=== PATIENT | female | born 1950 | race Caucasian/White ===

== ENCOUNTER → 2018-03-03 | Outpatient (CLI) | payer OTHER, MEDICAID ==
[2016-08-01 20:21] VITALS: BP 137/74
--- NOTE | 2018-03-03 10:55 | US ---
HISTORY: Right upper quadrant pain Study: Right upper quadrant abdominal ultrasound Comparison: None Technique: Multiple images of the right upper quadrant were obtained. Findings: The liver measures 14.2 cm. Increased echogenicity throughout the visualized liver suggests fatty inf iltration. Correlate clinically as other causes of hepatic disease may produce a similar appearance. The right kidney measures 7.1 x 3.7 x 3.7 cm. No sonographic evidence of hydronephrosis is identified . Gallbladder folds are noted. Small non shadowing foci seen along the gallbladder wall may reflect g allbladder folds as well however polyps may produce a similar appearance. Gallbladder wall thickness is within normal limits measuring 2.1. The common bile duct is within normal limits in caliber measur ing 3.2. The pancreas was incompletely visualized. The exam is somewhat limited due to overlying [place] gas. IMPRESSION: Sonographic findings of hepatic steatosis. Other findings as noted above. Reported By:
== END ==
LOC: RAD 08:59
PROVIDERS: ATTEND Nurse Practitioner Family
DX: R10.11 Right upper quadrant pain (principal); R11.0 Nausea
CPT/HCPCS: 76705

== ENCOUNTER → 2018-03-11 | Outpatient (CLI) | payer OTHER, MEDICAID ==
[2016-08-01 20:21] VITALS: BP 137/74
--- NOTE | 2018-03-11 10:57 | NM ---
HISTORY: Abdominal pain Study: Hepatobiliary scan with ejection fraction Comparison: None Technique: Patient received intravenous injection of 5.5 mCi technetium 99 M mebrofenin. Sequential i mages of the right upper quadrant were obtained. The patient received a fatty meal and the abdomen wa s imaged once again. A time activity curve was plotted. Findings: There is good visualization of the hepatic parenchyma. No photopenic defects are identified. The bili nacho ducts and gallbladder visualized. There is free passage of tracer into the duodenum. Gallbladder ejection fraction was 7% which is low (normal greater than 35% ) IMPRESSION: Gallbladder ejection fraction 7% which is low (normal greater than 35%) Reported By:
== END ==
LOC: RAD 08:31
PROVIDERS: ATTEND Nurse Practitioner Family
DX: R10.11 Right upper quadrant pain (principal)
CPT/HCPCS: 78227; A9537

== ENCOUNTER → 2018-03-15 | Outpatient (CLI) | payer OTHER, MEDICAID ==
[2016-08-01 20:21] VITALS: BP 137/74
[2018-03-15 12:29] LABS: BILIRUBIN,URINE NEGATIVE (NEGATIVE); BLOOD/HEMOGLOBIN,URINE 1+ (NEGATIVE); GLUCOSE, URINE NEGATIVE (NEGATIVE); KETONES,URINE NEGATIVE (NEGATIVE); LEUKOCYTE ESTERASE ,URINE NEGATIVE (NEGATIVE); NITRITES,URINE NEGATIVE (NEGATIVE); PROTEIN,URINE NEGATIVE (NEGATIVE); UROBILINOGEN,URINE NORMAL (NORMAL)
[2018-03-15 12:39] LABS: APPEARANCE,URINE CLEAR (CLEAR); COLOR,URINE YELLOW (YELLOW); RBC,URINE 0-2 /HPF (NONE SEEN)
[2018-03-15 12:40] LABS: BACTERIA,URINE TRACE /HPF (NEGATIVE); SQUAMOUS EPITHELIAL CELL,UR FEW /HPF (NEGATIVE)
--- NOTE | 2018-03-15 12:46 | RAD ---
HISTORY: Preop. Study: PA and lateral chest. Comparison: Chest x-ray dated February 03, 2013. Findings: Interval removal of a right chest Port-A-Cath. The cardiac silhouette is unremarkable. Chronic emphys ematous changes. No obvious focal consolidation, pleural effusion, or pneumothorax. The bony thorax is unremarkable. Surgical clips are seen overlying the bilateral chest and axilla. IMPRESSION: No acute cardiopulmonary disease. Reported By:
== END ==
LOC: LAB 12:13
PROVIDERS: ATTEND Surgery
DX: Z01.818 Encounter for other preprocedural examination (principal); Z01.810 Encounter for preprocedural cardiovascular examination; Z01.811 Encounter for preprocedural respiratory examination; Z79.899 Other long term (current) drug therapy; K82.8 Other specified diseases of gallbladder; R97.0 Elevated carcinoembryonic antigen [CEA]
CPT/HCPCS: 36415; 71046; 81001; 82378; 93005; 93010

== ENCOUNTER 2018-03-17 07:14 | Day surgery (SDC) | payer OTHER, MEDICAID ==
[~2018-03-17 07:14] MED LIST: ANCEF 1 GM IV PREMIX* 1 GM/50 ML BAG IV ONE; LR 1000 ML IV 1,000 ML IV ONE
[2018-03-17] MEDS ORDERED: DUONEB 0.5 MG/3 MG NEB ONE (08:00)
[2018-03-17] MEDS ORDERED: FENTANYL INJ 250 mcg ONE (08:20)
[2018-03-17] MEDS ORDERED: NS IRRIGATION 3000 ML 3,000 ML IR ONE (08:50)
[2018-03-17] MEDS ORDERED: DILAUDID INJ ONE (09:00)
[2018-03-17] MEDS ORDERED: DILAUDID INJ IVP PRN (09:47)
[2018-03-17] MEDS ORDERED: BENADRYL INJ 50 MG VIAL IVP PRN (09:47)
[2018-03-17] MEDS ORDERED: ZOFRAN INJ 4 MG VIAL IVP PRN (09:47)
[2018-03-17] MEDS ORDERED: PHENERGAN INJ 25 MG IVP PRN (09:47)
[2018-03-17] MEDS ORDERED: REGLAN INJ 10 MG VIAL IVP PRN (09:47)
[2018-03-17 11:21] VITALS: BP 134/71
[2018-03-17] MEDS ORDERED: NORCURON INJ 10 MG VIAL ONE (15:49)
[2018-03-17] MEDS ORDERED: XYLOCAINE 1 % (PLAIN) ONE (15:49)
[2018-03-17] MEDS ORDERED: ZOFRAN INJ 4 MG VIAL ONE (15:49)
[2018-03-17] MEDS ORDERED: NEOSTIGMINE INJ ONE (15:49)
[2018-03-17] MEDS ORDERED: ROBINUL ONE (15:49)
[2018-03-17] MEDS ORDERED: SUPRANE IN ONE (15:49)
[2018-03-17] MEDS ORDERED: VERSED ONE (15:49)
[2018-03-17] MEDS ORDERED: LTA KIT LIDOCAINE 4% ONE (15:49)
[2018-03-17] MEDS ORDERED: QUELICIN (OR ANECTINE) ONE (15:49)
[2018-03-17] MEDS ORDERED: NARCAN INJ ONE (15:49)
[2018-03-17] MEDS ORDERED: DIPRIVAN VIAL ONE (15:49)
== END 2018-03-17 11:13 | disposition home or self-care (01) | DRG 419 ==
LOC: SURG1 07:14
PROVIDERS: ATTEND Surgery
PROC: 0FT44ZZ Resection of Gallbladder, Percutaneous Endoscopic Approach (ICD-10-PCS; principal; 2018-03-17 08:30)
DX: K81.1 Chronic cholecystitis (principal); K82.8 Other specified diseases of gallbladder; K66.0 Peritoneal adhesions (postprocedural) (postinfection)
CPT/HCPCS: A4216; A4222; J0330; J0690; J1170; J2001; J2250; J2310; J2405; J2710; J3010; J3490; J7120; J7620